=== PATIENT | male | born 1955 | race Caucasian/White ===

== ENCOUNTER 2017-10-28 14:07 | Emergency (ER) | payer OTHER ==
[2017-10-28] MEDS: NS 0.9% 1000 ML* 2,000 ML IV ONE ×2 (14:55→14:56)
[2017-10-28 15:00] LABS: INR 0.87 (0.77-1.02)
[2017-10-28 15:01] LABS: ABS Basophils 0.1 10^3/ul (0-0.2); ABS Eosinophils 0.6 10^3/ul (0-0.6); ABS Lymphocytes 1.7 10^3/ul (1.0-4.8); ABS Monocytes 0.5 10^3/ul (0-0.8); ABS Neutrophils 5.6 10^3/ul (1.5-7.7); ABS Nucleated RBC 0 10^3/ul; Eosinophil % 7.5 % (0-6); Hematocrit 44 % (42-52); Lymphocyte % 19.6 % (25-47); Mean Corpuscular HGB Conc 36 g/dl (31-36); Mean Corpuscular Hemoglobin 32 pg (27-31); Mean Corpuscular Volume 88 fL (80-94); Nucleated Red Blood Cells % 0; Platelet Count 214 10^3/ul (150-450); Red Blood Count 5.03 10^6/ul (4.00-5.40); Red Cell Distribution Width 13 % (10.5-15); White Blood Count 8.5 10^3/ul (3.5-10.8)
--- NOTE | 2017-10-28 15:01 | RAD ---
INDICATION: Palpitations COMPARISON: Chest x-ray September 26, 2015 TECHNIQUE: An AP portable view obtained at 1453 hours is submitted. FINDINGS: Bones/Soft Tissues: There are no acute bony findings. Cardiomediastinal: The cardiomediastinal silhouette is normal. Lungs: There are no infiltrates. Pleura: There are no pleural effusions. Other: None IMPRESSION: NO ACTIVE DISEASE.
[2017-10-28 15:09] LABS: EGFR Non-African American 75.7 (>60)
[2017-10-28] MEDS ORDERED: NS 0.9% 1000 ML* 1,000 ML IV ONE (15:45)
[2017-10-28] MEDS ORDERED: Iohexol 350* (CONTRAST) 500 ML MDV IV ONE (15:54)
--- NOTE | 2017-10-28 16:55 | RAD ---
HISTORY: Left arm numbness and elevated d-dimer COMPARISON: None. TECHNIQUE: Multiple transverse and longitudinal ultrasound images were obtained of the veins of the left upper extremity using grayscale, color Doppler, and spectral Doppler imaging with and without compression and with augmentation. FINDINGS: VEINS: The axillary, brachial, basilic and cephalic are compressible throughout their course, with normal flow on color Doppler imaging and normal response to augmentation on spectral Doppler imaging. The subclavian vein exhibits appropriate augmentation and phasicity. The radial and ulnar veins are compressible. Evidence of adequate flow is identified in the right internal jugular and subclavian vein as well. SOFT TISSUES: Grossly normal. IMPRESSION: No sonographic evidence of deep vein thrombosis.
--- NOTE | 2017-10-28 18:09 | RAD ---
INDICATION: Palpitations, left arm numbness and a positive d-dimer COMPARISON: None TECHNIQUE: Axial source images were acquired following the administration of 73 mL Omnipaque [address] angiographic technique. Coronal and sagittal reconstructed images were constructed and reviewed. FINDINGS: There there are no filling defects in the pulmonary arteries to indicate acute pulmonary embolic disease. There are no focal infiltrates or effusions. There are no pulmonary parenchymal masses. The heart is normal in size. There is no evidence of pericardial effusion. There is no evidence of aortic aneurysm or dissection. There is no mediastinal, hilar, or axillary lymphadenopathy. Degenerative changes of the thoracic spine include loss of intervertebral disc height, mild marginal osteophyte formation and multilevel vacuum disc phenomenon. There is a moderate size hiatal hernia with essentially the entire stomach located in the medial lower left hemithorax. A large fluid density cyst is partially visualized extending from the upper pole of the right kidney. IMPRESSION: 1. No CT of evidence of pulmonary embolism. 2. Large hiatal hernia with essentially the entire stomach displaced into the medial lower left hemithorax. 3. Additional chronic and degenerative changes described in the body the report.
[2017-10-28 19:17] VITALS: BP 138/82
--- NOTE | 2017-10-28 20:03 | ED ---
Harlan Romo Simon, scribed for Lizandro Hoang MD on 10/28/17 at 1453 . Palpitations / Dysrhythmia - HPI Summary HPI Summary: This patient is a 62 year old M presenting to [facility] with a chief complaint of SVT at 1300, lasting 15-20 minutes, which is significantly longer than usual. Pt performed the Adelaide Delta maneuver crunches several times to help sx. Endorses numbness through left arm, mild tingling, and dizziness (he attributes this to too much caffeine, not enough water today). Denies abd pain, calf pain/ edema, nausea, sweating, SOB, exercise intolerance. He denies any aggravating factors. Took 3 81 mg tabs of ASA today. He noted his last stress test was 5 years ago. - History of Current Complaint Chief Complaint: EDDysrhythmPalp Time Seen by Provider: 10/28/17 14:15 Hx Obtained From: Patient Onset/Duration: Sudden Onset, Lasting Minutes - 15-20, Still Present - numbness/ tingling, Resolved - SVT Severity Initially: Moderate Severity Currently: Mild Character: Fast, Pounding Aggravating: Nothing Alleviating: Other - Adelaide Delta maneuver. Associated Signs & Symptoms: Lightheadedness, Dizzy - Allergy/Home Medications Allergies/Adverse Reactions: Allergies Allergy/AdvReac Type Severity Reaction Status Date / Time Penicillins Allergy Unknown Verified 10/28/17 14:09 Reaction Details Home Medications: Home Medications Aspirin EC TAB* [Ecotrin EC Low Dose 81 MG*] 81 mg PO DAILY 10/28/17 [History Confirmed 10/28/17] PMH/Surg Hx/FS Hx/Imm Hx Cardiovascular History: Reports: Other Cardiovascular Problems/Disorders - SVT/ S DX'D 2 YRS AGO Respiratory History: Denies: Other Respiratory Problems/Disorders GI History: Reports: Other GI Disorders - Colon lesion, removed Sensory History: Denies: Hx Legally Blind, Hx Deafness Opthamlomology History: Denies: Hx Legally Blind EENT History: Denies: Hx Deafness Neurological History: Denies: Hx Dementia - Cancer History Cancer Type, 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 - Surgical History Surgery Procedure, Year, and Place: colon lesion removed Infectious Disease History: No Infectious Disease History: Denies: Traveled Outside the [place] in Last 30 Days - Family History Known Family History: Positive: Other - Mother lung cancer Negative: Blood Disorder - Social History Alcohol Use: None Substance Use Type: Reports: None Hx Tobacco Use: No Smoking Status (MU): Never Smoked Tobacco Review of Systems Negative: Skin Diaphoresis Positive: Palpitations - SVT Negative: Shortness Of Breath Negative: Abdominal Pain, Nausea Negative: Myalgia - denies calf pain, Edema Neurological: Other - dizziness/lightheadedness Positive: Paresthesia - left arm, Numbness - left arm All Other Systems Reviewed And Are Negative: Yes Physical Exam - Summary Physical Exam Summary: General: well-appearing, no pain distress Skin: warm, color reflects adequate perfusion, dry Head: normal Eyes: EOMI, ABBEY ENT: normal Neck: supple, nontender Respiratory: CTA, breath sounds present Cardiovascular: RRR Abdomen: soft, nontender Bowel: present Musculoskeletal: normal, strength/ROM intact Neurological: sensory/motor intact, A&O x3 Psychological: affect/mood appropriate Triage Information Reviewed: Yes Vital Signs On Initial Exam: Initial Vitals Temp Pulse Resp Pulse Ox 97.4 F 106 18 99 10/28/17 14:08 10/28/17 14:08 10/28/17 14:08 10/28/17 14:08 Vital Signs Reviewed: Yes Diagnostics - Vital Signs Vital Signs Temp Pulse Resp Pulse Ox 10/28/17 14:08 97.4 F 106 18 99 - Laboratory Lab Results: Lab Results 10/28/17 10/28/17 10/28/17 Range/Units 14:39 14:39 14:39 WBC 8.5 (3.5-10.8) 10^3/ul RBC 5.03 (4.00-5.40) 10^6/ul Hgb 16.0 (14.0-18.0) g/dl Hct 44 (42-52) % MCV 88 (80-94) fL MCH 32 H (27-31) pg MCHC 36 (31-36) g/dl RDW 13 (10.5-15) % Plt Count 214 (150-450) 10^3/ul MPV 8.0 (7.4-10.4) um3 Neut % (Auto) 65.7 (38-83) % Lymph % (Auto) 19.6 L (25-47) % [place] % (Auto) 6.1 (0-7) % Eos % (Auto) 7.5 H (0-6) % Baso % (Auto) 1.1 (0-2) % Absolute Neuts (auto) 5.6 (1.5-7.7) 10^3/ul Absolute Lymphs (auto) 1.7 (1.0-4.8) 10^3/ul Absolute Monos (auto) 0.5 (0-0.8) 10^3/ul Absolute Eos (auto) 0.6 (0-0.6) 10^3/ul Absolute Basos (auto) 0.1 (0-0.2) 10^3/ul Absolute Nucleated RBC 0 10^3/ul Nucleated RBC % 0 INR (Anticoag Therapy) 0.87 (0.77-1.02) APTT 30.0 (26.0-36.3) seconds D-Dimer, Quantitative 238 H (Less Than 230) ng/mL Sodium 140 (135-145) mmol/L Potassium 3.6 (3.5-5.0) mmol/L Chloride 107 (101-111) mmol/L Carbon Dioxide 26 (22-32) mmol/L Anion Gap 7 (2-11) mmol/L BUN 12 (6-24) mg/dL Creatinine 1.00 (0.67-1.17) mg/dL Est GFR ( Amer) 97.4 (>60) Est GFR (Non-Af Amer) 75.7 (>60) BUN/Creatinine Ratio 12.0 (8-20) Glucose 113 H (70-100) mg/dL Lactic Acid (0.5-2.0) mmol/L Calcium 9.2 (8.6-10.3) mg/dL Magnesium 2.0 (1.9-2.7) mg/dL Total Bilirubin 0.50 (0.2-1.0) mg/dL AST 16 (13-39) U/L ALT 12 (7-52) U/L Alkaline Phosphatase 54 (34-104) U/L Total Creatine Kinase 81 (10-223) U/L CK-MB (CK-2) 1.9 (0.6-6.3) ng/mL Troponin I 0.00 (<0.04) ng/mL B-Natriuretic Peptide ( - 100) pg/mL Total Protein 6.3 L (6.4-8.9) g/dL Albumin 3.9 (3.2-5.2) g/dL Globulin 2.4 (2-4) g/dL Albumin/Globulin Ratio 1.6 (1-3) TSH 5.89 H (0.34-5.60) mcIU/mL 10/28/17 10/28/17 10/28/17 Range/Units 14:39 14:39 17:48 WBC (3.5-10.8) 10^3/ul RBC (4.00-5.40) 10^6/ul Hgb (14.0-18.0) g/dl Hct (42-52) % MCV (80-94) fL MCH (27-31) pg MCHC (31-36) g/dl RDW (10.5-15) % Plt Count (150-450) 10^3/ul MPV (7.4-10.4) um3 Neut % (Auto) (38-83) % Lymph % (Auto) (25-47) % [place] % (Auto) (0-7) % Eos % (Auto) (0-6) % Baso % (Auto) (0-2) % Absolute Neuts (auto) (1.5-7.7) 10^3/ul Absolute Lymphs (auto) (1.0-4.8) 10^3/ul Absolute Monos (auto) (0-0.8) 10^3/ul Absolute Eos (auto) (0-0.6) 10^3/ul Absolute Basos (auto) (0-0.2) 10^3/ul Absolute Nucleated RBC 10^3/ul Nucleated RBC % INR (Anticoag Therapy) (0.77-1.02) APTT (26.0-36.3) seconds D-Dimer, Quantitative (Less Than 230) ng/mL Sodium (135-145) mmol/L Potassium (3.5-5.0) mmol/L Chloride (101-111) mmol/L Carbon Dioxide (22-32) mmol/L Anion Gap (2-11) mmol/L BUN (6-24) mg/dL Creatinine (0.67-1.17) mg/dL Est GFR ( Amer) (>60) Est GFR (Non-Af Amer) (>60) BUN/Creatinine Ratio (8-20) Glucose (70-100) mg/dL Lactic Acid 1.0 (0.5-2.0) mmol/L Calcium (8.6-10.3) mg/dL Magnesium (1.9-2.7) mg/dL Total Bilirubin (0.2-1.0) mg/dL AST (13-39) U/L ALT (7-52) U/L Alkaline Phosphatase (34-104) U/L Total Creatine Kinase (10-223) U/L CK-MB (CK-2) (0.6-6.3) ng/mL Troponin I 0.00 (<0.04) ng/mL B-Natriuretic Peptide 24 ( - 100) pg/mL Total Protein (6.4-8.9) g/dL Albumin (3.2-5.2) g/dL Globulin (2-4) g/dL Albumin/Globulin Ratio (1-3) TSH (0.34-5.60) mcIU/mL Result Diagrams: 10/28/17 14:39 10/28/17 14:39 Lab Statement: Any lab studies that have been ordered have been reviewed, and results considered in the medical decision making process. - Radiology Chest XR Xray Interpretation: No Acute Changes Radiology Interpretation Completed By: Radiologist - No active disease. Dr. Laureano has reviewed this report. - EKG 1405 Cardiac Rate: NL - 94 EKG Rhythm: Sinus Rhythm ST Segment: Normal Ectopy: None Re-Evaluation - Re-Evaluation First Eval Re-Evaluation Time: 15:33 Change: Unchanged - Still has tingling/numbness in left hand, denies SOB, CP. Discussed admit vs rechecking trop in ED, pt prefers check in ED. Comment: sx unchanged, no CP, no SOB, discussed admission vs recheck trop in ED , pt opted for recheck over admit. Course/Dx - Course Course Of Treatment: Medications reviewed. Allergies noted. PALPITIONS WERE ALL PRIOR TO ARRIVAL IN THE ED. NO CHEST PAIN. NO SOB. LEFT ARM NUMBNESS IMPROVED IN ED. DISCUSSED RESULTS WITH PATIENT. TROPONINS NEGATIVE X 2. DISCUSSED GETTING A THIRD TROPONIN IN ED VERSES ADMISSION. THE PATIENT PREFERS TO LEAVE AFTER SECOND TROPONIN AND F/U OUT PATIENT. WILL RETURN TO ED IF WORSE. - Diagnoses Provider Diagnoses: Palpitations, Paresthesia of left arm Discharge - Sign-Out/Discharge Documenting (check all that apply): Discharge/Admit/Transfer - Discharge Plan Condition: Stable Disposition: HOME Patient Education Materials: Heart Palpitations (ED), Hiatal Hernia (ED), Paresthesia (ED) Referrals: José Luis Chinchilla MD [Primary Care Provider] - Additional Instructions: FOLLOW UP WITH YOUR DOCTOR. RETURN TO THE EMERGENCY DEPARTMENT FOR ANY WORSENING OF YOUR CONDITION; CHEST PAIN, SHORTNESS OF BREATH, YOU FEEL ILL OR QUESTIONS OR CONCERNS. - Billing Disposition and Condition Condition: STABLE Disposition: Home The documentation as recorded by the Harlan velasco Simon accurately reflects the service I personally performed and the decisions made by me, Lizandro Hoang MD.
== END 2017-10-28 19:21 | disposition home or self-care (01) ==
LOC: ED 14:07
DX: R00.2 Palpitations (principal); R20.2 Paresthesia of skin; R42 Dizziness and giddiness; R20.0 Anesthesia of skin; K44.9 Diaphragmatic hernia without obstruction or gangrene; M47.814 Spondylosis without myelopathy or radiculopathy, thoracic region; Z88.0 Allergy status to penicillin
CPT/HCPCS: 36415; 71045; 71275; 80053; 82550; 82553; 83605; 83735; 83880; 84443; 84484; 85025; 85379; 85610; 85730; 93005; 96360; 96361; 99283; Q9967

== ENCOUNTER → 2018-03-25 13:13 | Day surgery (SDC) | payer OTHER ==
[~2018-03-25 13:13] MED LIST: Acetaminophen TAB* 325 MG PO PRN; BSS OPTH.SOL* BTL ONE; Buffered Lidocaine 0.9% SYRIN* 5 ML/SYR SYRINGE INTRADERM ONE; Cyclopentolate 1% OPTH.SOL* 2 ML BTL ONE; Dexamethasone IV* 4 MG/ML 1 ML (4 MG) IV SLOW PU ONE; Dexamethasone IV* 4 MG/ML 1 ML (4 MG) ONE; Famotidine IV* 10 MG/ML 2 ML (20 mg) IV ONE; Famotidine IV* 10 MG/ML 2 ML (20 mg) ONE; Ketorolac 0.5% OPHTH (NF) 0.5 % 5 ML BTL ONE; Lidocaine 1%* 5 ML VIAL ONE; Lidocaine 2% EPI 1:200000 MPF*10-20 ML VIAL ONE; Lidocaine 2% PF * 5 ML VIAL ONE; Lidocaine 2% W/EPI 1:100,000* 20 ML MDV ONE; Midazolam* 1 MG/ML 2 ML VIAL (2 MG) ONE; Naloxone* 0.4 MG/ML 1 ML VIAL IV PRN; Neomycin/Polymy/Dex OPHTH.OIN* 3.5 GM ONE; Neomycin/Polymy/Dex OPTH.SUSP* MAXITROL 0.1% 5 ML ONE; Ondansetron INJ* 2 MG/ML VIAL IV PRN; Ondansetron INJ* 2 MG/ML VIAL ONE; Phenylephrine 2.5% OPTH.SOL* 2 ML BTL ONE; Povidone Iodine 5% OPTH* 30 ML BTL ONE; Proparacaine 0.5% OPHTH.SOL* 15 ML BTL ONE; Propofol* 10 MG/ML 20 ML BTL IV PUSH ONE; acetaZOLAMIDE TAB* 250 MG ONE; fentaNYL* 50 MCG/ML 2 ML VIAL (100 MCG VIAL) ONE; oxyCODONE/Acetamin 5/325 MG* TAB PO PRN
[2018-03-25 16:23] VITALS: BP 123/86
--- NOTE | 2018-03-26 06:29 | OP ---
DATE OF OPERATION: 03/25/18 - [facility] DATE OF : 55 SURGEON: Julio Garcia MD ANESTHESIA: Local MAC. PREOPERATIVE DIAGNOSIS: Pterygium, left eye. POSTOPERATIVE DIAGNOSIS: Pterygium, left eye. OPERATIVE PROCEDURE: Excision of the pterygium with amniotic mucous membrane graft, left eye. COMPLICATIONS: None. DESCRIPTION OF PROCEDURE: The eye was prepped and draped in the usual sterile fashion, lid speculum was placed, topical 2% lidocaine with epinephrine was placed. The pterygium was oriented temporally with the head extending about 5 to 6 mm on to the clear cornea. The 2% lidocaine with epinephrine was injected subtenons and subconjunctivally under the area of the pterygium. The head of the pterygium was excised from the cornea using a #15 [employer] blade and polished it as best as I could. Then the entire pterygium was removed from the conjunctival area using Kaela scissors. Hemostasis achieved with low temp cautery. Two 6-0 gut sutures were placed far temporally to close the conjunctiva, and then an amniotic membrane graft was cut to size and sutured in place with #10-0 nylon interrupted sutures over the area of the defect. Topical Maxitrol drops were given and a bandage contact lens was placed and in the end eye was patched. [id number]/[facility] [place] #: [id number] ROLANDO
== END | disposition home or self-care (01) ==
LOC: OREAST 13:13
PROVIDERS: ATTEND Specialist
DX: Z01.818 Encounter for other preprocedural examination (principal); H11.013 Amyloid pterygium of eye, bilateral; H25.13 Age-related nuclear cataract, bilateral; Z88.0 Allergy status to penicillin
CPT/HCPCS: 88304; A9270-GY; J1100; J2250; J2405; J2704; J3010; V2790

== ENCOUNTER 2018-06-17 20:43 | Emergency (ER) | payer BC, OTHER ==
--- NOTE | 2018-06-17 21:11 | ED ---
Respiratory - HPI Summary HPI Summary: 63 yo male [place] [facility] [place] accompanied by with exposure to mouse feces earlier this evening. He tells me that he was cleaning out a closet outdoors and noticed mouse droppings. He got a broom and began to sweep up the area. In the process, a plume of dust got into his face which he inhaled. Immediately following he had about 5 minutes of coughing and sneezing that resolved spontaneously. He began to google his symptoms and is now concerned about hantavirus or an infection. He currently has no symptoms and feels fine. He denies PMHx. Currently denies cough, sneezing, wheezing, SOB, chest pain. - History of Current Complaint Chief Complaint: EDGeneral Stated Complaint: POSS EXPOSURE Time Seen by Provider: 06/17/18 21:10 Hx Obtained From: Patient Onset/Duration: Sudden Onset Current Severity: None Pain Intensity: 0 - Allergy/Home Medications Allergies/Adverse Reactions: Allergies Allergy/AdvReac Type Severity Reaction Status Date / Time Penicillins Allergy Unknown Verified 03/25/18 13:37 Reaction Details PMH/Surg Hx/FS Hx/Imm Hx Endocrine/Hematology History: Denies: Hx Diabetes, Hx Thyroid Disease Cardiovascular History: Denies: Hx Hypertension, Hx Valvular Heart Disease, Other Cardiovascular Problems/Disorders Respiratory History: Denies: Other Respiratory Problems/Disorders GI History: Reports: Hx Hiatal Hernia, Other GI Disorders - Colon lesion, removed 05/2015 History: Denies: Hx Renal Disease, Other Problems/Disorders Musculoskeletal History: Denies: Other Musculoskeletal History Sensory History: Reports: Hx Contacts or Glasses - Reading glasses Denies: Hx Cataracts, Hx Glaucoma, Hx Legally Blind, Hx Deafness, Hx Hearing Aid Opthamlomology History: Reports: Hx Contacts or Glasses - Reading glasses Denies: Hx Cataracts, Hx Glaucoma, Hx Legally Blind Neurological History: Denies: Hx Dementia, Other Neuro Impairments/Disorders - Cancer History Cancer Type, 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 Colon lesion removed 2015. Tonsillectomy age 5. Ear surgery age 10 Hx Anesthesia Reactions: Yes - ear surgery, given ether, had a bad experience per his mother Infectious Disease History: No Infectious Disease History: Denies: Traveled Outside the [place] in Last 30 Days - Family History Known Family History: Positive: Other - Mother lung cancer Negative: Blood Disorder - Social History Alcohol Use: None Substance Use Type: Reports: None Substance Use Comment - Amount & Last Used: rarely Hx Tobacco Use: No Smoking Status (MU): Never Smoked Tobacco Review of Systems Constitutional: Negative Eyes: Negative ENT: Negative Cardiovascular: Negative Respiratory: Negative Gastrointestinal: Negative Skin: Negative Neurological: Negative Psychological: Normal All Other Systems Reviewed And Are Negative: Yes Physical Exam - Summary Physical Exam Summary: GENERAL: NAD. WDWN. No pain distress. SKIN: No rashes, sores, lesions, or open wounds. HEENT: Head: AT/NC Eyes: EOM intact. Conjunctiva clear without inflammation or discharge. Ears: Hearing grossly normal. TMs intact, no bulging, erythema, or edema. Nose: Nasal mucosa pink and moist. NTTP maxillary and frontal sinus. Throat: Posterior oropharynx without exudates, erythema, or tonsillar enlargement. Uvula midline. NECK: Supple. Nontender. No lymphadenopathy. CHEST: CTAB. No r/r/w. No accessory muscle use. Breathing comfortably and in no distress. CV: RRR. Without m/r/g. Pulses intact. Cap refill <2seconds NEURO: Alert. PSYCH: Age appropriate behavior. Triage Information Reviewed: Yes Vital Signs On Initial Exam: Initial Vitals Temp Pulse Resp BP Pulse Ox 97.6 F 95 18 155/108 95 06/17/18 20:44 06/17/18 20:44 06/17/18 20:44 06/17/18 20:44 06/17/18 20:44 Vital Signs Reviewed: Yes Diagnostics - Vital Signs Vital Signs Temp Pulse Resp BP Pulse Ox 06/17/18 20:44 97.6 F 95 18 155/108 95 - Laboratory Lab Statement: Any lab studies that have been ordered have been reviewed, and results considered in the medical decision making process. Disposition - Course Course Of Treatment: Discussed with pt that his symptoms have resolved and his exam is WNL. I have a very low suspicion that he was exposed to hantavirus, but I made him aware that symptoms of this usually do not present for about 2 weeks. I suspect he had a bronchospasm due to dust exposure that resolved on it' s own. Advised him of symptoms of hantavirus and if he develops these to be rechecked. Pt and voiced understanding and are in agreement with the plan. - Diagnoses Provider Diagnoses: Bronchospasm Discharge - Sign-Out/Discharge Documenting (check all that apply): Patient Departure Patient Received Moderate/Deep Sedation with Procedure: No - Discharge Plan Condition: Stable Disposition: HOME Patient Education Materials: Bronchospasm (ED) Referrals: José Luis Chinchilla MD [Primary Care Provider] - Additional Instructions: If you develop a fever, shortness of breath, chest pain, new or worsening symptoms - please call your PCP or go to the ED. Your blood pressure was high at todays visit. Please see your primary provider within 4 weeks for recheck and re-evaluation. Your exam today was normal. I suspect your short-term breathing issues were due to a bronchospasm related to dust inhalation. - Billing Disposition and Condition Condition: STABLE Disposition: Home
[2018-06-17 21:50] VITALS: BP 155/100
== END 2018-06-17 21:48 | disposition home or self-care (01) ==
LOC: ED 20:43
DX: J98.01 Acute bronchospasm (principal); Z88.0 Allergy status to penicillin
CPT/HCPCS: 99281